=== PATIENT | female | born 1965 | race Caucasian/White ===

== ENCOUNTER 2024-07-07 12:13 | Emergency (ER) | payer MEDICARE, MEDICAID, SELFPAY ==
[2024-07-07 12:16] VITALS: BP 140/86; PULSE 119; RESP 18; TEMP 35.8; O2SAT 95; BMI 22.1
--- NOTE | 2024-07-07 12:43 | EDS_ITS ---
HPI HPI - Psych History of Present Illness Chief Complaint: Mental Health Informant: patient Onset/Context/Timing Onset: Weeks (1.5) Context: Gradual Onset Conflict: Family Timing: Continuous Worsened by: Situational factors Relieved by: Nothing Associated Symptoms Associated Symptoms - Psych: Negative for Confusion, Paranoia, Visual Hallucinations or Auditory Hallucinations Narrative Narrative: Patient presents with increasing anxiety over the past week and a half. Patient states she feels like she is shaking on the inside. Patient states this is getting worse since caring for her mom at home. Patient denies any suicidal homicidal ideations. Patient denies any paranoid ideations. Patient denies any visual or auditory hallucinations. Patient states she has been taking Ativan with no improvement. Patient states she has been having some difficulty taking her other medications because she is not eating. [facility] Medical History (Updated 07/07/24 @ 15:[address] Anant Caldwell DO) Anxiety Hypercholesterolemia Hypertension Diabetes Home Medications ?Medication ?Instructions ?Recorded ?Last Taken ?Type hydroxyzine pamoate 25 mg capsule 50 mg (2 x 25 mg) PO TID PRN PRN 07/07/24 Unknown Rx Anxiety #30 CAPSULES sulfamethoxazole 800 1 tab PO BID #6 TABLETS 07/07/24 Unknown Rx mg-trimethoprim 160 mg tablet trazodone 50 mg tablet 50 mg PO QHS PRN sleep #5 tabs 07/07/24 Unknown Rx Allergy/AdvReac Type Severity Reaction Status Date / Time No Known Allergies Allergy Verified 07/07/24 12:15 Surgical History no surgical history no surgical history Social History Smoking Status: Current every day smoker tobacco type: cigarettes ROS ROS ED Constitutional Constitutional ED: Reports chills and subjective; Denies fever(s) Eyes Eyes: Denies blurry vision or change in vision ENT ENT ED: Denies rhinorrhea or sore throat Cardiovascular Cardiovascular: Denies chest pain or palpitations Respiratory/Chest Respiratory/Chest: Denies cough or dyspnea Gastrointestinal Gastrointestinal: Denies nausea or vomiting Genitourinary Genitourinary ED: Denies dysuria or hematuria Musculoskeletal Musculoskeletal: Denies back pain or neck pain Integumentary Denies abscess or rash Neurologic Neurologic: Denies headache(s) or weakness Psychiatric Psychiatric: Reports anxiety; Denies suicidal ideation or suicidal thoughts Allergic/Immunologic Allergic/Immunologic ED: Denies mouth swelling or urticaria EXAM Physical Exam Const Vital Signs: 07/07/24 12:16 07/07/24 12:50 07/07/24 13:15 Temperature 96.5 F L Temperature Source Temporal Pulse Rate 119 H 81 Pulse Rate [Lying] 78 Pulse Rate [Sitting (for 1 minute prior to obtaining)] 71 Pulse Rate [Standing (for 1 minute prior to obtaining)] 85 Respiratory Rate 18 19 H Blood Pressure 140/86 H 127/78 H Blood Pressure [Lying] 122/79 H Blood Pressure [Sitting (for 1 minute prior to obtaining)] 129/67 H Blood Pressure [Standing (for 1 minute prior to obtaining)] 134/80 H Blood Pressure Mean 104 94 Blood Pressure Mean [Lying] 93 Blood Pressure Mean [Sitting (for 1 minute prior to obtaining)] 87 Blood Pressure Mean [Standing (for 1 minute prior to obtaining)] 98 Pulse Ox 95 97 Oxygen Delivery Method Room Air Room Air 07/07/24 14:00 07/07/24 15:00 Temperature Temperature Source Pulse Rate 80 64 Pulse Rate [Lying] Pulse Rate [Sitting (for 1 minute prior to obtaining)] Pulse Rate [Standing (for 1 minute prior to obtaining)] Respiratory Rate 18 15 Blood Pressure 119/95 H Blood Pressure [Lying] Blood Pressure [Sitting (for 1 minute prior to obtaining)] Blood Pressure [Standing (for 1 minute prior to obtaining)] Blood Pressure Mean 103 Blood Pressure Mean [Lying] Blood Pressure Mean [Sitting (for 1 minute prior to obtaining)] Blood Pressure Mean [Standing (for 1 minute prior to obtaining)] Pulse Ox 97 97 Oxygen Delivery Method Room Air Positive well nourished and well developed General Appearance ED: well developed and NAD HEENT Reports moist mucous membranes normocephalic and atraumatic Neck supple and no JVD Resp normal respiratory effort and clear to auscultation bilaterally Cardio Rate: regular rate Rhythm: regular rhythm GI non-tender and non-distended Palpation: soft Extremity normal to inspection General Extremety ED: Negative for edema or tenderness General Extremity: Negative for edema Neuro oriented x3, CN's II-XII intact bilaterally, no sensory deficits noted and deep tendon reflexes 2+ bilaterally [place] Coma Scale: document GCS findings Spontaneous Obeys Commands Oriented 15 Sensorium / Orientation: alert Motor Exam: strength 5/5 throughout Psych Appearance: grossly normal Attitude: calm Speech: normal speech Mood & Affect: anxious Thought Process: normal thought process MDM MDM MDM Narrative Medical decision making narrative: Differential diagnosis includes anxiety, electrolyte abnormality, anemia, urinary tract infection, pneumonia, bronchitis, and viral illness. CBC will be obtained to assess for leukocytosis and anemia. Comprehensive metabolic profile will be obtained to assess for hepatic function, renal function, and electrolyte abnormality. Urinalysis will be obtained to assess for urinary tract infection and hematuria. Chest x-ray will be obtained to assess for pneumonia and bronchitis. Lab Data Attestation: I reviewed the patient's lab results. Lab results narrative: CBC was a mild leukocytosis of 12 8. Remainder is within normal limits. Comprehensive metabolic profile was reviewed. Glucose was elevated to 90. Anion gap was normal. The remainder is within normal limits. Urinalysis was reviewed. Leukocyte esterase was 100 with greater than 100 white blood cells. There were 25-50 epithelial cells and 10-25 red blood cells. There is 3+ bacteria. Labs: Laboratory Results - last 24 hr 07/07/24 07/07/24 13:05 13:09 WBC 12.8 H RBC 5.00 Hgb 14.7 Hct 43.8 MCV 87.6 MCH 29.4 MCHC 33.6 RDW Std Deviation 38.4 RDW Coeff of Dennis 12.0 Plt Count 285 MPV 10.9 Immature Gran % (Auto) 0.300 Neut % (Auto) 67.0 Lymph % (Auto) 24.5 [place] % (Auto) 5.8 Eos % (Auto) 1.4 Baso % (Auto) 1.0 Absolute Neuts (auto) 8.6 H Absolute Lymphs (auto) 3.15 Nucleated RBC % 0 Sodium 142 Potassium 3.9 Chloride 107 Carbon Dioxide 28.0 Anion Gap 7 BUN 21 H Creatinine 0.76 Estim Creat Clear Calc 67.98 Est GFR (MDRD) Af Amer 100 Est GFR (MDRD) Non-Af 82 BUN/Creatinine Ratio 27.6 H Glucose 290 H Calcium 9.9 Total Bilirubin 0.50 AST 7 L ALT 16 Alkaline Phosphatase 95 Total Protein 7.6 Albumin 3.9 Globulin 3.7 Albumin/Globulin Ratio 1.1 Urine Color Yellow Urine Clarity Cloudy Urine pH 5.0 Ur Specific [place] 1.025 Urine Protein 30 H Urine Glucose (UA) 1000 H Urine Ketones Negative Urine Occult Blood 25 H Urine Nitrite Negative Urine Bilirubin 1 H Urine Urobilinogen 1 H Ur Leukocyte Esterase 100 H Urine RBC 10-25 SEEN Urine WBC >100 SEEN Ur Squamous Epith Cells 25-50 SEEN Urine Bacteria 3+ Urine Mucus 2+ Radiography Chest X-Ray - ED: 2 View, Read by ED Physician, Read by Radiologist and No Acute Disease Diagnostic Testing: Clinical Impression(s) from Imaging Studies Chest X-Ray 07/07/24 13:15 IMPRESSION: No radiographic evidence of acute cardiopulmonary disease. Electronically Signed: Roque Neal MD at 14:41 EST , PA and lateral chest x-ray was obtained. There are 2 views. On my independent interpretation, lung stone are clear. There is normal cardiac silhouette. Bony thorax is normal. There is no acute process noted. Radiologist also interpreted the x-ray and agrees. Treatment and Re-Evaluation Narrative: Patient was given IV fluids and hydroxyzine. Patient was still feeling somewhat anxious. Patient was advised of her findings. Patient was given a dose of Bactrim here. Patient was given a prescription for Bactrim. Patient was also given a prescription for hydroxyzine and a short course of trazodone. Patient was instructed to follow-up with her primary care physician in 3 to 5 days. Patient was instructed to return if worse in any way. Patient understood and was agreeable with the plan. All questions were answered. Discharge Plan Triage Chief Complaint: Mental Health ED Provider: Anant Caldwell Dx/Rx/DC Orders Clinical Impression: Urinary tract infection, Diabetes, Anxiety Instructions: ED Anxiety Reaction, ED Cystitis Female Adult Prescriptions: New sulfamethoxazole-trimethoprim 800-160 mg tablet 1 tab PO BID Qty: 6 0RF hydroxyzine pamoate 25 mg capsule 50 mg PO TID PRN PRN (Reason: Anxiety) Qty: 30 0RF trazodone 50 mg tablet 50 mg PO QHS PRN (Reason: sleep) Qty: 5 0RF Primary Care Provider: SCAR MENDIETA NP Referrals: SCAR MENDIETA NP [Other] - 3-5 Days NOT,DEFINED [Non-Staff] - Print Language: Hebrew Disposition Disposition: Home, Self Care
[2024-07-07 12:50] VITALS: BP 122/79; BP 129/67; BP 134/80; PULSE 71; PULSE 78; PULSE 85
[2024-07-07] MEDS: 0.9% Normal Saline (1000mL) 1,000 ML 1000 ML IV (13:06)
[2024-07-07] MEDS: hydrOXYzine PAM 25 MG Capsule 50 MG PO (13:06)
[2024-07-07 13:10] LABS: Color, Urine Yellow (Yellow); Glucose, Dipstick 1000 mg/dl (Normal); Ketone-Dipstick Negative (Negative); Leukocyte Esterase-Dipstick 100 /ul (Negative); Nitrite-Dipstick Negative (Negative); Occult Blood-Urine 25 /ul (Negative); Protein-Dipstick 30 mg/dl (Negative); Specific Gravity, Urine 1.025 (1.002-1.030); Urine Clarity Cloudy (Clear); Urine Urobilinogen 1 mg/dl (Normal)
[2024-07-07 13:12] LABS: Urine Bilirubin Dipstick 1 mg/dL (Negative)
[2024-07-07 13:15] VITALS: BP 127/78; PULSE 81; RESP 19; O2SAT 97
[2024-07-07 13:15] LABS: Absolute Lymphocyte Count 3.15 X10^3/uL (0.83-4.51); Absolute Neutrophil Count 8.6 X10^3/uL (2.0-7.7); Basophil# 0.13 X10^3/uL; Eosinophil# 0.18 X10^3/uL; Eosinophils% 1.4 % (0-5); Hematocrit 43.8 % (37-47); Hemoglobin 14.7 g/dL (12.0-15.0); Lymphocyte # 3.15 X10^3/ul (0.83-4.51); Lymphocyte % 24.5 % (19-41); Mean Corp Hgb Conc 33.6 g/dL (32-36); Mean Corpuscular Hgb 29.4 pg (27.0-32.0); Mean Corpuscular Volume 87.6 fL (81-99); Mean Platelet Vol. 10.9 fl (6.2-12.0); Monocyte# 0.75 X10^3/uL; Monocyte% 5.8 % (0-10); NRBC Flagged by Analyzer 0 % (0-5); Neutrophil # 8.59 X10^3/uL (2.7-7.7); Platelet Count 285 K/mm3 (150-450); RBC Distribution Width SD 38.4 fl (35.1-43.9); White Blood Count 12.8 K/mm3 (4.4-11.0)
--- NOTE | 2024-07-07 13:15 | CM.ED ---
Date of referral: 07/07/2024 Reason for referral: Mental Health Referred by: Social Work Identification Patient lying in hospital bed upon social work arrival. Patient's significant other (SO), Charan was at patient's bedside. Patient granted consent for social work visit, even with SO present. Patient half asleep and presented with extremely low energy levels. Patient reported that she, her brother Sherwin and her mother all live together in [place] and patient and Sherwin both care for their 83 year old mother who requires almost total care and patient reported feeling overwhelmed and exhausted. Patient reported that her mother is currently connected with [facility] and has a hospice nurse who comes out once a week and a home health aid through [facility] that also comes out between 1-2 days a week to help patient's mother with showering and other ADL's and IADL's. Patient reported her mother needs almost around the clock care including assistance with transfers, mobility and toileting. Patient is not currently working and reported she's been on disability due to anxiety and depression since around 2000 or 2001. Patient denied being connected to a mental health therapist or psychiatrist at this time and an interested in any resources to help patient get connected. Patient reported all meds and treatment are managed through PCP. Patient's brother also not working. During the assessment, patient was taken out of the room for x-rays. When social secretary returned to complete assessment and offer resources, patient expressed a desire to discontinue assessment so patient could sleep. Sachi Rashid, PHOTOGRAPHY PROFESSOR, ORAL COMMUNICATION INSTRUCTOR
--- NOTE | 2024-07-07 13:15 | RAD_ITS ---
EXAM: XR CHEST, 2 VIEWS CLINICAL INDICATION: Tachycardia TECHNIQUE: Frontal and lateral views of the chest. COMPARISON: No relevant prior studies available. FINDINGS: LUNGS AND PLEURAL SPACES: Unremarkable. No consolidation or edema. No pneumothorax. No effusion. HEART: Unremarkable. Cardiac silhouette not enlarged. MEDIASTINUM: Central airways and mediastinal contour are unremarkable. BONES/JOINTS: Unremarkable. No acute fracture. SOFT TISSUES: Unremarkable. RAD/Chest PA and Lateral IMPRESSION: No radiographic evidence of acute cardiopulmonary disease. Electronically Signed: Roque Neal MD at 14:41 EST ,
[2024-07-07 13:21] LABS: Bacteria 3+ /hpf (None Seen); Mucous, Urine 2+ /hpf (<or=2+); Red Blood Cells-Urine 10-25 SEEN /hpf (0-5); Squamous Epithelial Cells - UA 25-50 SEEN /hpf (5-10); White Blood Cells >100 SEEN /hpf (0-5)
[2024-07-07 13:32] LABS: ALB/GLOB Ratio 1.1 RATIO (0.9-2.4); AST(SGOT) 7 U/L (15-37); Alanine Aminotransfer ALT/SGPT 16 U/L (13-56); Albumin, Serum 3.9 g/dL (3.2-5.0); Alkaline Phosphatase 95 U/L (45-117); Anion Gap 7 (5-15); BUN 21 mg/dL (7-18); BUN/Creat Ratio 27.6 RATIO (10-20); Calcium,Total 9.9 mg/dL (8.5-10.1); Chloride 107 mmol/L (98-107); Creatinine, Serum 0.76 mg/dL (0.55-1.02); EST Glomerular Filtration Rate 82 mL/min (>60); Est Glom Filt Rate - Afr Amer 100 mL/min (>60); Estimated Creatinine Clearance 67.98 ml/min; Globulin 3.7 g/dL (2.2-4.2); Glucose 290 mg/dL (74-106); Potassium 3.9 mmol/L (3.5-5.1); Protein, Total 7.6 g/dL (6.4-8.2); Sodium Level 142 mmol/L (136-145)
[2024-07-07 14:00] VITALS: PULSE 80; RESP 18; O2SAT 97
[2024-07-07 15:00] VITALS: BP 119/95; PULSE 64; RESP 15; O2SAT 97
[2024-07-07 15:43] VITALS: BP 135/72; PULSE 61; RESP 19; TEMP 36.9; O2SAT 98
[2024-07-07] MEDS: Smz/Tmp Ds Tablet 1 TABLET PO (15:46)
== END 2024-07-07 15:53 | disposition home or self-care (01) ==
PROVIDERS: Emergency Provider Emergency Medicine; Visit Provider Emergency Medicine
DX: N39.0 Urinary tract infection, site not specified (principal); E11.9 Type 2 diabetes mellitus without complications; F41.9 Anxiety disorder, unspecified; F17.210 Nicotine dependence, cigarettes, uncomplicated
CPT/HCPCS: 71046; 80053; 81001; 85025; 87086; 87088; 96360; 96361; 99283